=== PATIENT | female | born 1995 | race Caucasian/White ===

== ENCOUNTER 2018-01-29 22:31 | Emergency (ER) | payer SELFPAY ==
[~2018-01-29] VITALS: Ht 157.5 cm; Wt 56.7 kg
[~2018-01-29 22:31] MED LIST: ACHD5005 PO; CEPH500C PO; CYCL10TA9 PO; DICY20TA57 PO; ESOM20CA32 PO; FLC150T PO; NAPR250T34 PO; OCP; PANT40TA2 PO; PHEN100T26 PO; PROM25SU43 RC; PROZAC; TRAM50TA2 PO; [UNRECOGNIZED DRUG - OTHER]
--- OUTSIDE RECORDS SUMMARY | 2018-01-29 22:36 | XMS REPORT | Clinical Summary ---
Author Author [facility] Organization [facility] Address Unknown Phone Unavailable Care Team Providers Care Retail Account Executive Name Role Phone No Pcp, Na PCP Unavailable Source Comments Some departments are not documenting in the electronic medical record. If you do not see the information that you expected, contact Release of Information in the Health Information Management department at [phone] for further assistance in locating additional records.[facility] Allergies No Known Allergies Current Medications Prescription Sig. Disp. Refills Start End Date Status Date albuterol (PROAIR HFA, Inhale 2 puffs by mouth 8.5 g 0 08/20/19 Active VENTOLIN HFA, OR into the lungs every 6 18 PROVENTIL HFA) 90 hours as needed for mcg/actuation inhaler Wheezing. Shake well before use. Active Problems Not on file Social History Tobacco Use Types Packs/Day Years Used Date Never Smoker Smokeless Tobacco: Never Used Sex Assigned at Date Recorded Not on file Last Filed Vital Signs Vital Sign Reading Time Taken Blood Pressure 99/51 08/20/2017 11:49 PM [facility] Pulse 94 08/20/2017 10:30 PM [facility] Temperature 36.9 C (98.5 F) 08/20/2017 10:30 PM [facility] Respiratory Rate - - Oxygen Saturation 100% 08/20/2017 11:51 PM [facility] Inhaled Oxygen - - Concentration Weight 56.7 kg (125 lb) 08/20/2017 10:30 PM [facility] Height - - Body Mass Index - - Plan of Treatment Health Maintenance Due Date Last Done Comments PHYSICAL (COMPREHENSIVE) 2004 EXAM HPV VACCINES (1 of 3 - 2008 Female 3 Dose Series) PERTUSSIS VACCINE 2008 HIV SCREENING 2012 TETANUS VACCINE 2014 INFLUENZA VACCINE 05/14/2018 Results Not on filefrom Last 3 Months
--- OUTSIDE RECORDS SUMMARY | 2018-01-29 22:36 | XMS REPORT | Continuity of Care Document ---
Demographics Preferred Language Unknown Marital Status Unknown Shinto Affiliation Unknown Race Unknown Ethnic Group Unknown Author Author [facility] Address Unknown Phone Unavailable Allergies Active Description Code Type Severity Reaction Onset Reported/Identified Relationship to Patient Clinical Status Yes No Known Drug Allergies [id number] Drug Allergy Unknown N/A 07/30/2010 Medications There is no data. 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 10/03/2012 296.90 MOOD DISORDER NOS 10/03/2012 296.90 MOOD DISORDER NOS 10/03/2012 296.90 MOOD DISORDER NOS 10/03/2012 296.90 MOOD DISORDER NOS 10/03/2012 296.90 MOOD DISORDER NOS 10/03/2012 296.90 MOOD DISORDER NOS 10/03/2012 296.90 MOOD DISORDER NOS 04/20/2014 NORRIS MENA MD Ot 845.00 SPRAIN OF ANKLE NOS 04/20/2014 NORRIS MENA MD Ot 959.7 LOWER LEG INJURY NOS 04/20/2014 NORRIS MENA MD Ot E000.8 OTHER EXTERNAL CAUSE STATUS 04/20/2014 NORRIS MENA MD Ot E849.0 ACCIDENT IN HOME 04/20/2014 NORRIS MENA MD Ot E927.0 OVEREXERTION FROM SUDDEN STRENUOUS MOVEM 07/18/2015 AIDA HUA DO Ot F17.210 NICOTINE DEPENDENCE, CIGARETTES, UNCOMPL 07/18/2015 AIDA HUA DO Ot R11.2 NAUSEA WITH VOMITING, UNSPECIFIED 08/18/2015 LEXIE HEARD DO Ot N83.8 08/18/2015 LEXIE HEARD DO Ot N91.1 06/13/2017 LEXIE HEARD DO Ot N83.8 OTH NONINFLAMMATORY DISORD OF OVARY, FAL 06/13/2017 ELXIE HEARD DO Ot 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 Encounters ACCT No. Visit Date/Time Discharge Status Pt. Type Provider Facility Loc./Unit Complaint [id number] 11/14/2012 15:13:00 11/14/2012 23:59:59 CLS Outpatient [id number] 11/07/2012 10:55:00 11/07/2012 23:59:59 CLS Outpatient [id number] 10/24/2012 11:34:00 10/24/2012 23:59:59 CLS Outpatient [id number] 10/16/2012 11:25:00 10/16/2012 23:59:59 CLS Outpatient [id number] 10/10/2012 12:51:00 10/10/2012 23:59:59 CLS Outpatient [id number] 10/03/2012 13:11:00 10/03/2012 23:59:59 CLS Outpatient [id number] 12/10/2012 11:35:00 Document Registration [id number] 11/23/2012 10:30:00 Document Registration [id number] 07/28/2015 11:00:00 07/28/2015 23:59:59 CLS Outpatient ISIAHLEXIE SAWANT DO [facility] RAD RT OVARIAN ENLARGEMENT [id number] 07/18/2015 02:03:00 07/18/2015 03:59:00 DIS Emergency AIDA HUA DO [facility] ER VOMITING,NAUSEA,WEAK [id number] 04/20/2014 02:34:00 04/20/2014 03:09:00 DIS Emergency NORRIS MENA MD [facility] ER R ANKLE [id number] 06/30/2013 17:07:00 06/30/2013 23:59:59 CLS Outpatient [id number] 07/30/2010 19:08:00 Document Registration
[2018-01-29] MEDS ORDERED: KETOROLAC 30 MG/ML VIAL IM ONE (22:45)
[2018-01-29] MEDS ORDERED: PROMETHAZINE INJ 25 MG/ML (PHENERGAN) AMP IM ONE (22:45)
--- NOTE | 2018-01-29 22:46 | ED GU-Female ---
General Chief Complaint: Abdominal/GI Problems Stated Complaint: BLADDER INFECTION Source: patient, family, other Exam Limitations: no limitations History of Present Illness Date Seen by Provider: Jan 29, 2018 Time Seen by Provider: 22:36 Initial Comments The patient presents to the ER by private conveyance with a chief complaint that she thinks she's having a urinary tract infection. She says her symptoms started about 2 weeks ago with some suprapubic pain and dysuria and she drank a lot of fluids and thought that would make it go away. She did not follow up with a doctor at that time. However the last to 3 days her pain is come back as well as she's had some chills nausea and difficulty with eating fluids down. She has not had any antibiotics the last several months. She does not have a history of multiple urinary tract infections. She does not have a history of kidney stones. She is having some pain now in her left kidney area that she did not have until tonight. She's not having any sweats or rash. She denies dysuria. Allergies and Home Medications Allergies Coded Allergies: ondansetron (Verified Allergy, Unknown, 01/29/18) Patient Home Medication List Home Medication List Reviewed: Yes Review of Systems Constitutional: chills; No diaphoresis, No fever; malaise EENTM: No ear discharge, No ear pain Respiratory: No cough, No short of breath Cardiovascular: No chest pain, No edema Gastrointestinal: see HPI, abdominal pain (suprapubic); No constipation, No diarrhea; nausea Genitourinary: burning; denies discharge; dysuria; denies frequency; flank pain (left) Musculoskeletal: No back pain, No joint pain Past Gquufny-Xbhiok-Tibaxb Hx Patient Social History Recent Foreign Travel: No Contact w/Someone Who Travel: No Past Medical History Nose Headaches /Migraines Reproductive Disorders: No Gastroesophageal Reflux Adverse Reaction/Blood Tranf: No Physical Exam Vital Signs Vital Signs - First Documented 01/29/18 22:39 Temp 98.2 Pulse 98 Resp 20 B/P (MAP) 118/76 (90) Pulse Ox 97 O2 Delivery Room Air Capillary Refill : General Appearance: WD/WN, no apparent distress HEENT: PERRL/EOMI, pharynx normal Cardiovascular: normal peripheral pulses, regular rate, rhythm Respiratory: no respiratory distress, no accessory muscle use Gastrointestinal: normal bowel sounds, soft, tenderness (suprapubic region without palpable bladder) Back: normal inspection; No CVA tenderness (R); CVA tenderness (L) Extremities: non-tender, normal inspection, no pedal edema, normal capillary refill Neurologic/Psychiatric: alert, normal mood/affect, oriented x 3 Skin: normal color, warm/dry Progress/Results/Core Measures Suspected Sepsis SIRS Temperature: Pulse: Respiratory Rate: Laboratory Tests 01/29/18 23:00: White Blood Count 8.7 Blood Pressure / Mean: Laboratory Tests 01/29/18 23:00: Creatinine 1.02, Platelet Count 220, Total Bilirubin 0.4 Results/Orders Lab Results Laboratory Tests Test 01/29/18 22:42 01/29/18 23:00 Range/Units Urine Color YELLOW Urine Clarity SLIGHTLY CLOUDY Urine pH 6 5-9 Urine Specific [place] 1.020 1.016-1.022 Urine Protein 2+ H NEGATIVE Urine Glucose (UA) NEGATIVE NEGATIVE Urine Ketones NEGATIVE NEGATIVE Urine Nitrite POSITIVE H NEGATIVE Urine Bilirubin NEGATIVE NEGATIVE Urine Urobilinogen 1 NORMAL MG/DL Urine Leukocyte Esterase 3+ H NEGATIVE Urine RBC (Auto) 3+ H NEGATIVE Urine RBC 5-10 H /HPF Urine WBC >100 H /HPF Urine Squamous Epithelial Cells 10-25 H /HPF Urine Crystals NONE /LPF Urine Bacteria MODERATE H /HPF Urine Casts NONE /LPF Urine Mucus NEGATIVE /LPF Urine Culture Indicated YES Urine Test NEGATIVE NEGATIVE White Blood Count 8.7 4.3-11.0 10^3/uL Red Blood Count 4.76 4.35-5.85 10^6/uL Hemoglobin 14.1 11.5-16.0 G/DL Hematocrit 41 35-52 % Mean Corpuscular Volume 87 80-99 FL Mean Corpuscular Hemoglobin 30 25-34 PG Mean Corpuscular Hemoglobin Concent 34 32-36 G/DL Red Cell Distribution Width 14.1 10.0-14.5 % Platelet Count 220 130-400 10^3/uL Mean Platelet Volume 11.4 H 7.4-10.4 FL Neutrophils (%) (Auto) 51 42-75 % Lymphocytes (%) (Auto) 42 12-44 % Monocytes (%) (Auto) 6 0-12 % Eosinophils (%) (Auto) 2 0-10 % Basophils (%) (Auto) 0 0-10 % Neutrophils # (Auto) 4.4 1.8-7.8 X 10^3 Lymphocytes # (Auto) 3.7 1.0-4.0 X 10^3 Monocytes # (Auto) 0.5 0.0-1.0 X 10^3 Eosinophils # (Auto) 0.2 0.0-0.3 10^3/uL Basophils # (Auto) 0.0 0.0-0.1 10^3/uL Sodium Level 142 135-145 MMOL/L Potassium Level 3.7 3.6-5.0 MMOL/L Chloride Level 110 H 98-107 MMOL/L Carbon Dioxide Level 22 21-32 MMOL/L Anion Gap 10 5-14 MMOL/L Blood Urea Nitrogen 16 7-18 MG/DL Creatinine 1.02 0.60-1.30 MG/DL Estimat Glomerular Filtration Rate > 60 BUN/Creatinine Ratio 16 Glucose Level 82 70-105 MG/DL Calcium Level 9.4 8.5-10.1 MG/DL Total Bilirubin 0.4 0.1-1.0 MG/DL Aspartate Amino Transf (AST/SGOT) 15 5-34 U/L Alanine Aminotransferase (ALT/SGPT) 13 0-55 U/L Alkaline Phosphatase 112 40-136 U/L Total Protein 7.3 6.4-8.2 GM/DL Albumin 4.5 3.2-4.5 GM/DL My Orders Orders - STEFANIA DENNY Cbc With Automated Diff (01/29/18 22:41) Comprehensive Metabolic Panel (01/29/18 22:41) Hcg,Qualitative Urine (01/29/18 22:41) Ua Culture If Indicated (01/29/18 22:41) Promethazine Injection (Phenergan Injec (01/29/18 22:45) Ketorolac Injection (Toradol Injection) (01/29/18 22:45) Urine Culture (01/29/18 22:42) Ceftriaxone Injection (Rocephin Injectio (01/29/18 23:15) Lidocaine 1% Inj 50 Ml (Xylocaine 1% Inj (01/29/18 23:15) Medications Given in ED Current Medications Medications Dose Ordered Sig/Kristi Route Start Time Stop Time Status Last Admin Dose Admin Ketorolac Tromethamine 15 mg ONCE ONCE IM 01/29/18 22:45 01/29/18 22:46 DC 01/29/18 22:53 15 MG Promethazine HCl 25 mg ONCE ONCE IM 01/29/18 22:45 01/29/18 22:46 DC 01/29/18 22:52 25 MG Vital Signs/I&O 01/29/18 22:39 Temp 98.2 Pulse 98 Resp 20 B/P (MAP) 118/76 (90) Pulse Ox 97 O2 Delivery Room Air Capillary Refill : Progress Note #1: Time: 22:45 Progress Note UTI versus pyelonephritis. We'll get a blood draw probably give her a dose of Rocephin and obtain urine samples, urine hCG and give her some Toradol and Phenergan. She reports an allergy to Zofran. Progress Note #2: Time: 23:15 Progress Note Milind UTI on urinalysis with a few squames seen. We'll wait to get her labs are back and see if her nausea and pain has improved with hour intervention. Departure Impression Primary Impression: Urinary tract infection Qualified Codes: N30.01 - Acute cystitis with hematuria Disposition: HOME, SELF-CARE Condition: Improved Departure-Patient Inst. Decision time for Depature: 23:33 Referrals: ALEXX MA MD (PCP/Family) Primary Care Physician Patient Instructions: Acute Cystitis (DC) Add. Discharge Instructions: Drink lots of fluids, half strength Gatorade and get some rest. You can use Tylenol 1000 mg every 8 hours as well as ibuprofen 800 mg every 8 hours for pain. If you have nausea you can take one tablet of Phenergan every 6 hours. All discharge instructions reviewed with patient and/or family. Voiced understanding. Scripts Promethazine HCl (Promethazine Tablet) 25 Mg Tablet 25 MG PO Q6H PRN for NAUSEA/VOMITING for 7 Days, #10 TAB 0 Refills Prov: STEFANIA DENNY 01/29/18 Cephalexin (Keflex) 500 Mg Capsule 500 MG PO BID for 7 Days, #14 CAP 0 Refills Prov: STEFANIA DENNY 01/29/18 Copy Copies To 1: ALEXX MA MD, TITUS J Jan 29, 2018 22:46
[2018-01-29 22:54] LABS: BILIRUBIN,URINE NEGATIVE (NEGATIVE); CLARITY,URINE SLIGHTLY CLOUDY; COLOR,URINE YELLOW; GLUCOSE, URINE (UA) NEGATIVE (NEGATIVE); KETONES,URINE NEGATIVE (NEGATIVE); LEUKOCYTE ESTERASE ,URINE 3+ (NEGATIVE); NITRITE,URINE POSITIVE (NEGATIVE); PH,URINE 6 (5-9); PROTEIN,URINE 2+ (NEGATIVE); UROBILINOGEN,URINE 1 MG/DL (NORMAL)
[2018-01-29 23:00] LABS: BACTERIA,URINE MODERATE /HPF; WBC,URINE >100 /HPF
[2018-01-29 23:06] LABS: BASOPHILS % (AUTO) 0 % (0-10); EOSINOPHILS # (AUTO) 0.2 10^3/uL (0.0-0.3); EOSINOPHILS % (AUTO) 2 % (0-10); HEMATOCRIT 41 % (35-52); HEMOGLOBIN 14.1 G/DL (11.5-16.0); LYMPHOCYTES # (AUTO) 3.7 X 10^3 (1.0-4.0); LYMPHOCYTES % (AUTO) 42 % (12-44); MEAN CORPUSCULAR HEMOGLOBIN 30 PG (25-34); MEAN CORPUSCULAR HGB CONC 34 G/DL (32-36); MEAN CORPUSCULAR VOLUME 87 FL (80-99); MEAN PLATELET VOLUME 11.4 FL (7.4-10.4); MONOCYTES # (AUTO) 0.5 X 10^3 (0.0-1.0); MONOCYTES % (AUTO) 6 % (0-12); NEUTROPHILS # (AUTO) 4.4 X 10^3 (1.8-7.8); NEUTROPHILS % (AUTO) 51 % (42-75); PLATELET COUNT 220 10^3/uL (130-400); RED BLOOD COUNT 4.76 10^6/uL (4.35-5.85); RED CELL DISTRIBUTION WIDTH 14.1 % (10.0-14.5); WHITE BLOOD COUNT 8.7 10^3/uL (4.3-11.0)
[2018-01-29] MEDS ORDERED: cefTRIAXone 1 GM (ROCEPHIN) VIAL IM ONE (23:15)
[2018-01-29] MEDS ORDERED: LIDOCAINE 1% INJ 50 ML (XYLOCAINE) VIAL IJ ONE (23:15)
[2018-01-29 23:25] LABS: ALANINE AMINOTRANSFERASE 13 U/L (0-55); ALBUMIN 4.5 GM/DL (3.2-4.5); ALKALINE PHOSPHATASE 112 U/L (40-136); BILIRUBIN,TOTAL 0.4 MG/DL (0.1-1.0); BUN/CREATININE RATIO 16; CALCIUM 9.4 MG/DL (8.5-10.1); CARBON DIOXIDE 22 MMOL/L (21-32); CHLORIDE 110 MMOL/L (98-107); CREATININE SERUM 1.02 MG/DL (0.60-1.30); GFR ESTIMATED > 60; GLUCOSE 82 MG/DL (70-105); POTASSIUM 3.7 MMOL/L (3.6-5.0); SODIUM 142 MMOL/L (135-145); TOTAL PROTEIN 7.3 GM/DL (6.4-8.2)
[2018-01-29] MEDS ORDERED: LIDOCAINE 1% INJ 20 ML 20 ML VIAL ONE (23:33)
[2018-01-29] MEDS ORDERED: PROM25TA14 PO (23:40)
[2018-01-29] MEDS ORDERED: CEPH-507 PO (23:40)
[2018-01-29 23:54] VITALS: BP 118/76
== END 2018-01-29 23:54 | disposition home or self-care (01) ==
LOC: ER 22:31
DX: N39.0 Urinary tract infection, site not specified (principal); G43.909 Migraine, unspecified, not intractable, without status migrainosus; K21.9 Gastro-esophageal reflux disease without esophagitis; Z88.8 Allergy status to other drugs, medicaments and biological substances
CPT/HCPCS: 36415; 80053; 81000; 84703; 85025; 87077; 87088; 87186; 96372; 99284

== ENCOUNTER 2020-06-14 18:53 | Emergency (ER) | payer OTHER ==
[~2020-06-14] VITALS: Ht 137.5 cm; Wt 60.5 kg
[~2020-06-14 18:53] MED LIST changes: +CEPH-507 PO; +PROM25TA14 PO
[2020-06-14 19:01] VITALS: BP 129/72
--- NOTE | 2020-06-14 19:03 | ED General ---
General Stated Complaint: MEDICAL CLEARANCE Source of Information: Patient, Police, RN/MD, RN Notes Reviewed History of Present Illness Date Seen by Provider: Jun 14, 2020 Time Seen by Provider: 18:55 Initial Comments This patient presents to the emergency department complaining of shortness of breath due to asthma. 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 Patient states he has history of asthma and she was brought to the ER for medical screening exam. Patient has no complaints upon arrival. Pulse ox 98% on room air blood pressure 122/74. Timing/Duration: 1/2 Hour Severity: Mild Allergies and Home Medications Allergies Coded Allergies: ondansetron (Verified Allergy, Unknown, 01/29/18) Home Medications Cephalexin 500 Mg Capsule, 500 MG PO BID Prescribed by: STEFANIA DENNY on 01/29/18 2340 Promethazine HCl 25 Mg Tablet, 25 MG PO Q6H PRN for NAUSEA/VOMITING Prescribed by: STEFANIA DENNY on 01/29/18 2340 Patient Home Medication List Home Medication List Reviewed: Yes Review of Systems Review of Systems Constitutional: No no symptoms reported, No see HPI, No chills, No diaphoresis, No dizziness, No fever, No malaise, No weakness, No weight gain, No weight loss, No other EENTM: No see HPI, No no symptoms reported, No ear discharge, No hearing loss, No ear pain, No blurred vision, No double vision, No eye pain, No tearing, No vision loss, No dental problems, No hoarseness, No mouth pain, No mouth swelling, No epistaxis, No nose congestion, No nose pain, No throat pain, No throat swelling, No other Respiratory: No no symptoms reported, No see HPI, No cough; dyspnea on exertion; No hemoptysis, No orthopnea, No phlegm, No short of breath, No stridor, No wheezing, No other Cardiovascular: No no symptoms reported, No see HPI, No chest pain, No edema, No Hx of Intervention, No palpitations, No syncope, No vascular heart diseas, No other Gastrointestinal: No RUQ, No LUQ, No RLQ, No LLQ, No no symptoms reported, No see HPI, No abdominal pain, No constipation, No diarrhea, No dysphagia, No hematemesis, No heartburn, No jaundice, No loss of appetite, No melena, No nausea, No vomiting, No other Genitourinary: No no symptoms reported, No see HPI, No decreased output, No discharge, No dysuria, No frequency, No hematuria, No hesitancy, No inconti nence, No nocturia, No pain, No other Musculoskeletal: No no symptoms reported, No see HPI, No back pain, No gout, No joint pain, No joint swelling, No muscle pain, No muscle stiffness, No muscle cramps, No muscle twitching, No muscle weakness, No neck pain, No other Skin: No no symptoms reported, No see HPI, No change in color, No change in hair/nails, No dryness, No hx of skin cancer, No lesions, No lumps, No pruritus, No rash, No other All Other Systems Reviewed Negative Unless Noted: Yes Past Rpdiuov-Mlcuvw-Zjaros Hx Immunizations Up To Date Tetanus Booster (TDap): Unknown PED Vaccines UTD: Yes Past Medical History Surgeries: Yes (DEVIATED SEPTUM ) Nose Respiratory: No Cardiac: No Neurological: Yes Headaches /Migraines Reproductive Disorders: No Gastrointestinal: Yes Gastroesophageal Reflux Musculoskeletal: No Endocrine: No Cancer: No Psychosocial: No Integumentary: No Blood Disorders: No Adverse Reaction/Blood Tranf: No Physical Exam Vital Signs Capillary Refill : Height, Weight, BMI Height: 5'2.00" Weight: 125lbs. oz. 56.642328sa; BMI Method:Stated General Appearance: No Apparent Distress, WD/WN HEENT: PERRL/EOMI, TMs Normal, Normal ENT Inspection, Pharynx Normal Neck: Full Range of Motion, Normal Inspection, Non Tender, Supple, Carotid Bruit Respiratory: Chest Non Tender, Lungs Clear, Normal Breath Sounds, No Accessory Muscle Use, No Respiratory Distress Cardiovascular: Regular Rate, Rhythm, No Edema, No Gallop, No JVD, No Murmur, Normal Peripheral Pulses Gastrointestinal: Normal Bowel Sounds, No Organomegaly, No Pulsatile Mass, Non Tender, Soft Neurologic/Psychiatric: Alert, Oriented x3, No Motor/Sensory Deficits, Normal Mood/Affect Skin: Normal Color, Warm/Dry Progress/Results/Core Measures Suspected Sepsis SIRS Temperature: Pulse: Respiratory Rate: Blood Pressure / Mean: Results/Orders Vital Signs/I&O Capillary Refill : Progress Note : Time: 19:02 Progress Note All symptoms resolved prior to arrival. Patient has no complaints. Patient is released with police to [facility]. Departure Impression Primary Impression: Encounter for medical screening examination Additional Impression: History of asthma Disposition: [address]/[employer] Condition: Stable Departure-Patient Inst. Referrals: ALEXX MA MD (PCP/Family) Primary Care Physician Patient Instructions: Exercise-Induced Asthma JESSICA SANDRA MD Jun 14, 2020 19:02
== END 2020-06-14 19:07 ==
LOC: EDUNIT# 18:53 → ER FS 18:55
DX: Z00.00 Encounter for general adult medical examination without abnormal findings (principal); Z88.8 Allergy status to other drugs, medicaments and biological substances
CPT/HCPCS: 99281